=== PATIENT | female | born 1970 | race Caucasian/White ===

== ENCOUNTER 2017-12-19 17:23 | Emergency (ER) | payer BC ==
[~2017-12-19] VITALS: Ht 167.6 cm; Wt 60.7 kg
[~2017-12-19 17:23] MED LIST: ADVAIR IH; ALBUTEROL IH; ATIVAN1 MG PO; DUONEB IH
[2017-12-19 19:32] VITALS: BP 113/67
== END 2017-12-19 19:34 | disposition home or self-care (01) ==
LOC: EME 17:23
DX: T78.49XA Other allergy, initial encounter (principal); J45.909 Unspecified asthma, uncomplicated; Z87.891 Personal history of nicotine dependence; Z85.6 Personal history of leukemia; Z90.710 Acquired absence of both cervix and uterus
CPT/HCPCS: 71045; 94640; 99281; 99284; J7644

== ENCOUNTER 2018-02-16 07:12 | Inpatient (IN) | payer BC ==
[~2018-02-16] VITALS: Ht 167.6 cm; Wt 54.3 kg
[2018-02-16 08:05] LABS: HEMOGLOBIN 14.2 G/DL (11.9-15.5); MCH 29.5 PG (29.0-34.0); MCHC 34.6 G/DL (30.0-36.0); MCV 85.1 FL (83-99); PLATELET COUNT 220 K/uL (156-360); RBC DIS.WIDTH-CV 12.2 % (11.8-14.6); RBC DIS.WIDTH-SD 37.4 % (39-53); RED BLOOD COUNT 4.82 M/uL (3.80-5.20)
[2018-02-16 08:44] LABS: TROP-I INTERPRETATION NEGATIVE; TROPONIN-I < 0.01 ng/mL (0.0-0.30)
[2018-02-16 08:50] LABS: ALKALINE PHOSPHATASE 60 IU/L (3-129); ALT (GPT) 13 IU/L (3-49); AST (GOT) 14 IU/L (2-34); CHLORIDE 96 MEQ/L (99-109); CREATININE 0.7 MG/DL (0.6-1.3); GFR ESTIMATE (CALCULATED) > 59 mL/min/; GLUCOSE 114 mg/dL (70-99); POTASSIUM 3.4 MEQ/L (3.7-5.4); SODIUM 135 MEQ/L (136-147); TOTAL BILIRUBIN 0.5 MG/DL (0.0-1.0); TOTAL PROTEIN 7.2 G/DL (6.4-8.3); UREA NITROGEN (BUN) 23 mg/dL (9-23)
[2018-02-16] MEDS ORDERED: ZITHROMAX200 MG/5 M PO (10:36)
[2018-02-16] MEDS ORDERED: DUONEB 2.5-0.5 M3 ML AEROSOL (11:38)
[2018-02-16] MEDS ORDERED: PROAIR RESPICL90 MCG IH (11:39)
[2018-02-16 19:34] VITALS: BP 97/52
[2018-02-17 00:22] VITALS: BP 115/59
[2018-02-17 04:40] VITALS: BP 113/60
[2018-02-17 08:28] VITALS: BP 115/65
[2018-02-17 09:03] LABS: BASOPHIL (%) 0.4 % (0-1); EOSINOPHIL (%) 0.4 % (0-5); HEMATOCRIT 35.6 % (36.0-46.0); IMMATURE GRANULOCYTE (%) 0.7 % (0.0-0.7); LYMPHOCYTE COUNT 1.9 K/uL (1.0-2.8); MCH 28.4 PG (29.0-34.0); MCHC 33.1 G/DL (30.0-36.0); MCV 85.6 FL (83-99); MONOCYTE (%) 12.4 % (3-12); MONOCYTE COUNT 0.7 K/uL (0-0.8); NEUTROPHIL (%) 53.1 % (45-76); PLATELET COUNT 205 K/uL (156-360); RBC DIS.WIDTH-CV 12.3 % (11.8-14.6); RBC DIS.WIDTH-SD 38.5 % (39-53); RED BLOOD COUNT 4.16 M/uL (3.80-5.20); WHITE BLOOD COUNT 5.7 K/uL (4.1-10.2)
[2018-02-17 09:23] LABS: HEMOGLOBIN 11.8 G/DL (11.9-15.5)
[2018-02-17 10:30] LABS: APPEARANCE CLEAR ((CLEAR)); BILIRUBIN NEGATIVE; BLOOD MODERATE; COLOR YELLOW ((YELLOW)); GLUCOSE (STRIP) NEGATIVE; KETONES NEGATIVE; LEUKOCYTES NEGATIVE; NITRITE NEGATIVE; PROTEIN (STRIP) NEGATIVE; SPECIFIC GRAVITY 1.017 (1.000-1.030); UROBILINOGEN 0.2 MG/DL (0.2-1.0)
[2018-02-17 10:32] LABS: CREATININE 0.6 MG/DL (0.6-1.3); GFR ESTIMATE (CALCULATED) > 59 mL/min/; GLUCOSE 95 mg/dL (70-99); HDL CHOLESTEROL 30 MG/DL (Desirable>=50); LDL CHOLESTEROL 52 mg/dL (Desirable<100); MAGNESIUM 1.8 mg/dl (1.3-2.7); NON-HDL CHOLESTEROL 68 mg/dL (Desirable<160); POTASSIUM 3.6 MEQ/L (3.7-5.4); THYROTROPIN (TSH) 0.32 MIU/L (0.4-5.5); TOTAL CHOLESTEROL 98 mg/dL (Desirable<200); TRIGLYCERIDES 79 MG/DL (Normal: <150); UREA NITROGEN (BUN) 8 mg/dL (9-23)
[2018-02-17 10:36] LABS: BACTERIA NONE SEEN /HPF; EPITHELIAL CELLS NONE SEEN /HPF; MUCUS TRACE /LPF; UCUL ADDED? NO; WHITE BLOOD CELLS 0-5 /HPF (0-5)
[2018-02-17 10:40] LABS: CHLORIDE 108 MEQ/L (99-109); SODIUM 142 MEQ/L (136-147)
[2018-02-17 12:32] VITALS: BP 128/78
[2018-02-17 17:33] VITALS: BP 128/82
[2018-02-17 20:23] VITALS: BP 118/62
[2018-02-18] VITALS (7 sets, daily range): BP systolic 116–143; BP diastolic 58–88
[2018-02-18 06:33] LABS: HEMATOCRIT 35.6 % (36.0-46.0); HEMOGLOBIN 11.7 G/DL (11.9-15.5); MCH 28.3 PG (29.0-34.0); MCHC 32.9 G/DL (30.0-36.0); PLATELET COUNT 237 K/uL (156-360); RBC DIS.WIDTH-CV 12.3 % (11.8-14.6); RBC DIS.WIDTH-SD 38.8 % (39-53); RED BLOOD COUNT 4.14 M/uL (3.80-5.20); WHITE BLOOD COUNT 4.5 K/uL (4.1-10.2)
[2018-02-18 06:58] LABS: CHLORIDE 107 MEQ/L (99-109); CREATININE 0.5 MG/DL (0.6-1.3); GFR ESTIMATE (CALCULATED) > 59 mL/min/; GLUCOSE 138 mg/dL (70-99); MAGNESIUM 1.8 mg/dl (1.3-2.7); POTASSIUM 4.2 MEQ/L (3.7-5.4); SODIUM 140 MEQ/L (136-147); UREA NITROGEN (BUN) 8 mg/dL (9-23)
[2018-02-18 08:06] LABS: BASOPHIL (%) 0.2 % (0-1); EOSINOPHIL (%) 0 % (0-5); IMMATURE GRANULOCYTE (%) 1.8 % (0.0-0.7); LYMPHOCYTE (%) 17.6 % (15-42); LYMPHOCYTE COUNT 0.8 K/uL (1.0-2.8); MONOCYTE (%) 2.9 % (3-12); MONOCYTE COUNT 0.1 K/uL (0-0.8); NEUTROPHIL (%) 77.5 % (45-76); NEUTROPHIL COUNT 3.5 K/uL (1.8-6.4)
[2018-02-19] MEDS ORDERED: TAMIFLU6 MG/1 ML PO (15:31)
[2018-02-19] MEDS ORDERED: DUONEB 2.5-0.5 M3 ML AEROSOL (15:31)
[2018-02-19] MEDS ORDERED: PROAIR RESPICL90 MCG IH (15:31)
[2018-02-19] MEDS ORDERED: MUCINEX600 MG PO (15:32)
[2018-02-19] MEDS ORDERED: AUGMENTIN50 MG/ML PO (15:34)
[2018-02-19] MEDS ORDERED: PREDNISONE5 MG PO (15:38)
[2018-02-19 15:49] VITALS: BP 148/81
== END 2018-02-19 16:56 | disposition home or self-care (01) | DRG 194 ==
LOC: EME 07:12 → EDOF 11:29 → CANRESERV 11:30 → ENRESERV 11:30 → EDOF 12:12 → ENRESERV 12:28 → CANRESERV 12:28 → EDOF 12:56 → 5SOUTH 12:56 → ENRESERV 13:04 → 5SOUTH 13:47
PROVIDERS: Hospitalist; Nurse Practitioner Family; Physician Assistant
DX: J10.00 Influenza due to other identified influenza virus with unspecified type of pneumonia (principal); C91.91 Lymphoid leukemia, unspecified, in remission; Z68.1 Body mass index [BMI] 19.9 or less, adult; E46 Unspecified protein-calorie malnutrition; J10.1 Influenza due to other identified influenza virus with other respiratory manifestations; J40 Bronchitis, not specified as acute or chronic; J39.8 Other specified diseases of upper respiratory tract; F41.9 Anxiety disorder, unspecified; Z66 Do not resuscitate; Z90.49 Acquired absence of other specified parts of digestive tract; Z92.3 Personal history of irradiation; Z92.21 Personal history of antineoplastic chemotherapy; Z78.9 Other specified health status; Z90.710 Acquired absence of both cervix and uterus
CPT/HCPCS: 71046; 71275; 80048; 80053; 80061; 81003; 83735; 84443; 84484; 85025; 85027; 85379; 87070; 87205; 87449; 87502; 93005; 94640; 94640 76; 94760; 99202; 99281; 99285; J0456; J0696; J1650; J2270; J2405; J2543; J2920; J7030; J7050; J7512